=== PATIENT | female | born 1995 | race African-American/Black ===

== ENCOUNTER 2020-08-21 03:37 | Emergency (ER) | payer OTHER ==
[~2020-08-21] VITALS: Ht 157.5 cm; Wt 93.9 kg
[2020-08-21 03:43] VITALS: Ht 157.5 cm; Wt 93.9 kg
[2020-08-21 05:52] VITALS: BP 117/63
== END 2020-08-21 05:52 | disposition home or self-care (01) ==
LOC: ED 03:37
DX: S61.211A Laceration without foreign body of left index finger without damage to nail, initial encounter (principal); W26.8XXA Contact with other sharp object(s), not elsewhere classified, initial encounter; Y93.89 Activity, other specified; Y92.89 Other specified places as the place of occurrence of the external cause; Y99.8 Other external cause status
CPT/HCPCS: A4570